=== PATIENT | male | born 1980 | race Two or more races ===

== ENCOUNTER 2024-01-26 08:23 | Inpatient (IN) | payer MEDICAID ==
[~2024-01-26] VITALS: Ht 177.8 cm; Wt 114.0 kg
[2024-01-26] MEDS: SODIUM CHLORIDE 0.9% 1,000 ML IV ONE (09:01)
[2024-01-26] MEDS: ONDANSETRON HCL 4 MG/2 ML VIAL IV ONE (09:04)
[2024-01-26 09:05] LABS: Hematocrit 42.8 % (41.0-53.0); Mean Corpuscular Hemoglobin 30.1 pg (28.0-32.0); Mean Corpuscular Volume 85.9 fL (80.0-100.0); Red Blood Cells 4.99 10^6/uL (4.5-5.90); Red Cell Distribution Width 13.2 % (11.8-14.3); White Blood Cell 14.7 10^3/uL (4.4-10.8)
[2024-01-26] MEDS: HYDROmorphone HCL 2 MG/ML VL/or syr IV ONE (09:05)
[2024-01-26] MEDS: PIPERACILLIN-TAZO 4.5GM 100 ML IV ONE (09:11)
[2024-01-26 09:16] LABS: Alanine Aminotransferase 24 U/L (7-40); Albumin 2.9 g/dL (3.2-4.8); Alkaline Phosphatase 102 U/L (46-116); Anion Gap 7 (5-15); Aspartate Aminotransferase 25 U/L (13-40); BUN/Creatinine Ratio 13.2 (10.0-20.0); Bilirubin, Total 0.8 mg/dL (0.2-1.0); Blood Urea Nitrogen 20 mg/dL (9-23); Calcium 8.4 mg/dL (8.5-10.1); Carbon Dioxide 22 mmol/L (20-30); Chloride 98 mmol/L (98-107); Glucose 116 mg/dL (74-106); Potassium 3.6 mmol/L (3.5-5.1); Sodium 127 mmol/L (136-145); Total Protein 5.9 g/dL (5.7-8.2)
[2024-01-26 09:24] LABS: INR 1.1 (0.9-1.15); Partial Thromboplastin Time 33.1 SEC (24.5-34.5); Prothrombin Time 11.6 sec (9.3-11.8)
[2024-01-26] MEDS: IOHEXOL 300 MG/ML 100ML BOTTLE IJ ONE (09:37)
[2024-01-26 09:41] LABS: Basophils % (manual) 0 (0.0-2.0); Blast Cells 0; Eosinophils % (manual) 0 (0-7); Metamyelocytes % 0; Myelocytes % 0; Promyelocytes % 0; Reactive Lymphocytes 0
[2024-01-26 09:42] VITALS: PULSE 104; RESP 29; O2SAT 99
[2024-01-26 09:42] LABS: Band Neutrophils % (manual) 12; Lymphocytes % (manual) 5 (10.0-50.0); Monocytes % (manual) 9 (0-12)
[2024-01-26 09:43] LABS: Platelet Estimate Adequate; RBC Morphology Normal
[2024-01-26] MEDS ORDERED: NITROGLYCERIN 0.4 MG SL TAB SL PRN (09:45)
[2024-01-26] MEDS ORDERED: DOCUSATE SOD 100 MG CAP PO PRN (09:45)
[2024-01-26] MEDS ORDERED: ACETAMINOPHEN 325 MG TAB PO PRN (09:45)
[2024-01-26] MEDS ORDERED: MORPHINE SULFATE INJ 2 MG/ml SYRG IV PRN (09:45)
[2024-01-26] MEDS: SODIUM CHLORIDE 0.9% 2,350 ML IV ONE (10:15)
[2024-01-26 10:29] LABS: Lactic Acid w/Reflex 2.1 mmol/L (0.4-2.0)
[2024-01-26] MEDS ORDERED: VANCOMYCIN PER PHARMACY 0 MG IV SCH ×2 (10:30→15:00)
[2024-01-26] MEDS: VANCOMYCIN 1GM/200ML 200 ML IV ONE (11:17)
[2024-01-26] MEDS: MAGNESIUM SULFATE 1GM/100ML 100 ML IV SCH (12:25)
[2024-01-26] MEDS: MORPHINE SULFATE INJ 2 MG/ml SYRG IV PRN (14:26)
[2024-01-26] MEDS: PIPERACILLIN-TAZOB 3.375GM 100 ML IV SCH (15:19)
[2024-01-26] MEDS: HYDROmorphone HCL 2 MG/ML VL/or syr IV PRN ×2 (15:27→22:35)
[2024-01-26] MEDS: HEPARIN DRIP/D5W 100UNITS/ML 250 ML IV SCH (16:01)
[2024-01-26] MEDS: HEPARIN SODIUM (PORCINE) 5000 UNITS/ML 1ML VIAL IV ONE (16:02)
[2024-01-26 16:06] LABS: Lipase 30 U/L (12-53)
[2024-01-26 16:07] LABS: Amylase 48 U/L (30-118)
[2024-01-26 16:34] LABS: INR 1.08 (0.9-1.15); Partial Thromboplastin Time 34.4 SEC (24.5-34.5); Prothrombin Time 11.4 sec (9.3-11.8)
[2024-01-26] MEDS: HYDROcodone-ACET 5/325MG TAB PO PRN (17:49)
[2024-01-26 17:58] LABS: Urine Bacteria None Seen /hpf (None Seen)
[2024-01-26 18:20] LABS: Urine Blood 2+ /uL (Negative); Urine Clarity Turbid (Clear); Urine Color Yellow (Yellow); Urine Mucus FEW (None Seen); Urine Protein, UAD 3+ (Negative); Urine Specific Gravity 1.039 (1.001-1.035); Urine Urobilinogen Normal (Negative); Urine WBC 5 /hpf (0 - 3)
[2024-01-26 18:32] LABS: Amphetamine Screen, Urine Pos (NEGATIVE); Barbiturate Scree,Urine Neg (NEGATIVE); Benzodiazephine Screen, Urine Neg (NEGATIVE); Cannabinoid Screen, Urine Pos (NEGATIVE); Cocaine Screen, Urine Neg (NEGATIVE); Opiate Scree,Urine Neg (NEGATIVE); Phencyclidine Screen, Urine Neg (NEGATIVE)
[2024-01-26 19:30] VITALS: PULSE 114; RESP 16; O2SAT 97
[2024-01-26] MEDS: VANCOMYCIN 1GM/200ML 200 ML IV SCH (21:35)
[2024-01-26 22:39] LABS: INR 1.24 (0.9-1.15); Prothrombin Time 12.9 sec (9.3-11.8)
[2024-01-26 22:51] LABS: Partial Thromboplastin Time 78.1 SEC (24.5-34.5)
[2024-01-26 23:12] VITALS: BP 128/79; PULSE 117; PULSE 95; RESP 20; O2SAT 95
[2024-01-26 23:15] VITALS: BP 128/79; PULSE 113; RESP 22; O2SAT 96
[2024-01-27] VITALS (18 sets, daily range): BP systolic 122–151; BP diastolic 80–117; PULSE 95–122; RESP 14–34; TEMP 97.6–98.7; O2SAT 92–97
[2024-01-27] MEDS: ONDANSETRON HCL 4 MG/2 ML VIAL IV PRN (03:42)
[2024-01-27 05:37] LABS: Hematocrit 44.1 % (41.0-53.0); Hemoglobin 15.1 g/dL (13.5-17.5); Mean Corpuscular Hemoglobin 29.8 pg (28.0-32.0); Mean Corpuscular Hgb Conc. 34.2 g/dL (32.0-36.0); Mean Corpuscular Volume 87.1 fL (80.0-100.0); Red Blood Cells 5.06 10^6/uL (4.5-5.90); Red Cell Distribution Width 13.8 % (11.8-14.3); White Blood Cell 19.3 10^3/uL (4.4-10.8)
[2024-01-27 05:44] LABS: Basophils % (manual) 0 (0.0-2.0); Blast Cells 0; Eosinophils % (manual) 0 (0-7); Metamyelocytes % 0; Myelocytes % 0; Promyelocytes % 0; Reactive Lymphocytes 0
[2024-01-27 05:58] LABS: Alanine Aminotransferase 31 U/L (7-40); Albumin 3.6 g/dL (3.2-4.8); Alkaline Phosphatase 107 U/L (46-116); Anion Gap 14 (5-15); Aspartate Aminotransferase 42 U/L (13-40); BUN/Creatinine Ratio 13.4 (10.0-20.0); Bilirubin, Total 0.6 mg/dL (0.2-1.0); Calcium 8.7 mg/dL (8.7-10.4); Carbon Dioxide 21 mmol/L (20-30); Chloride 97 mmol/L (98-107); Glucose 134 mg/dL (74-106); Potassium 3.9 mmol/L (3.5-5.1); Total Protein 6.6 g/dL (5.7-8.2)
[2024-01-27 06:00] LABS: Blood Urea Nitrogen 44 mg/dL (9-23); Sodium 132 mmol/L (136-145)
[2024-01-27] MEDS: LORazepam 2MG/ML-1ML VIAL IV PRN (06:03)
[2024-01-27 06:05] LABS: Band Neutrophils % (manual) 33; Lymphocytes % (manual) 3 (10.0-50.0); Monocytes % (manual) 10 (0-12); Platelet Estimate Adequate
[2024-01-27 06:16] LABS: INR 1.1 (0.9-1.15); Partial Thromboplastin Time 39.9 SEC (24.5-34.5); Prothrombin Time 11.6 sec (9.3-11.8)
[2024-01-27] MEDS: SODIUM CHLORIDE 0.9% 1,000 ML IV SCH (13:09)
[2024-01-27] MEDS: ENOXAPARIN SOD 120 MG/0.8 ML SYRINGE SC ONE (13:09)
[2024-01-27] MEDS: LORazepam 2MG/ML-1ML VIAL IV ONE (13:09)
[2024-01-27 13:55] LABS: Hematocrit 37.7 % (41.0-53.0); Hemoglobin 12.9 g/dL (13.5-17.5); Mean Corpuscular Hgb Conc. 34.3 g/dL (32.0-36.0); Mean Corpuscular Volume 87.4 fL (80.0-100.0); Red Blood Cells 4.31 10^6/uL (4.5-5.90); Red Cell Distribution Width 13.5 % (11.8-14.3); White Blood Cell 16.7 10^3/uL (4.4-10.8)
[2024-01-27 15:34] LABS: Basophils % (manual) 0 (0.0-2.0); Blast Cells 0; Metamyelocytes % 0; Myelocytes % 0; Promyelocytes % 0; Reactive Lymphocytes 0
[2024-01-27 15:48] LABS: Lactic Acid w/Reflex 2.2 mmol/L (0.4-2.0)
[2024-01-27 17:04] LABS: Band Neutrophils % (manual) 24; Eosinophils % (manual) 1 (0-7); Lymphocytes % (manual) 6 (10.0-50.0); Monocytes % (manual) 7 (0-12); Platelet Estimate Adequate
[2024-01-27] MEDS: NICOTINE 21MG/24 HR TOPICAL PATCH TD ONE (17:22)
[2024-01-27] MEDS ORDERED: HALOPERIDOL LACTATE 5 MG/ML INJ VIAL IM PRN (18:30)
[2024-01-27] MEDS: QUEtiapine FUMARATE 25 MG TAB PO SCH (21:57)
[2024-01-27] MEDS: ENOXAPARIN SOD 120 MG/0.8 ML SYRINGE SC SCH (21:58)
[2024-01-27] MEDS: FUROSEMIDE 40 MG/4 ML VIAL IV ONE (22:01)
[2024-01-27] MEDS: LINEZOLID 600MG/300ML 300 ML IV SCH (22:02)
[2024-01-28] VITALS (66 sets, daily range): BP systolic 87–207; BP diastolic 51–136; PULSE 88–142; RESP 14–40; TEMP 97.9–98.9; O2SAT 93–100
[2024-01-28] MEDS: ALBUTEROL SULF 2.5 MG/0.5ML(0.5%) NEB SOLN NEB PRN (03:39)
[2024-01-28 05:11] LABS: Hematocrit 34.8 % (41.0-53.0); Mean Corpuscular Hemoglobin 29.6 pg (28.0-32.0); Mean Corpuscular Hgb Conc. 34.3 g/dL (32.0-36.0); Mean Corpuscular Volume 86.2 fL (80.0-100.0); Red Blood Cells 4.04 10^6/uL (4.5-5.90); Red Cell Distribution Width 13.7 % (11.8-14.3); White Blood Cell 13.5 10^3/uL (4.4-10.8)
[2024-01-28 05:19] LABS: Basophils % (manual) 0 (0.0-2.0); Blast Cells 0; Chloride 100 mmol/L (98-107); Eosinophils % (manual) 0 (0-7); Metamyelocytes % 0; Myelocytes % 0; Potassium 3.8 mmol/L (3.5-5.1); Promyelocytes % 0; Reactive Lymphocytes 0; Sodium 131 mmol/L (136-145)
[2024-01-28 05:20] LABS: Anion Gap 7 (5-15); Carbon Dioxide 24 mmol/L (20-30)
[2024-01-28 05:25] LABS: BUN/Creatinine Ratio 18.2 (10.0-20.0); Blood Urea Nitrogen 52 mg/dL (9-23); Glucose 112 mg/dL (74-106); Magnesium 2.5 mg/dL (1.6-2.6)
[2024-01-28 05:35] LABS: Band Neutrophils % (manual) 22; Lymphocytes % (manual) 3 (10.0-50.0); Monocytes % (manual) 6 (0-12); Platelet Estimate Adequate
[2024-01-28 06:56] LABS: COVID19 ANTIGEN SOFIA FIA NEGATIVE (NEGATIVE)
[2024-01-28] MEDS: NICOTINE 21MG/24 HR TOPICAL PATCH TD SCH (09:34)
[2024-01-28] MEDS ORDERED: ALBUTEROL SULF 2.5 MG/0.5ML(0.5%) NEB SOLN NEB PRN (10:15)
[2024-01-28] MEDS ORDERED: VANCOMYCIN PER PHARMACY 0 MG IV SCH ×2 (10:30→18:15)
[2024-01-28 11:21] LABS: Phosphorus 4.7 mg/dL (2.4-5.1)
[2024-01-28 11:22] LABS: Base Excess -3.4 mmol/L (-2.0-2.0)
[2024-01-28] MEDS ORDERED: DAPTOmycin 0 MG in SODIUM CHL 0.9% 50 ML IV SCH (12:30)
[2024-01-28] MEDS ORDERED: DAPTOMYCIN IV SCH (13:00)
[2024-01-28] MEDS ORDERED: SODIUM CHL 0.9% IV SCH (13:00)
[2024-01-28] MEDS: ETOMIDATE (2MG/ML) 20ML VIAL IV ONE ×2 (14:45→15:07)
[2024-01-28] MEDS: ROCURONIUM 10MG/ML 10ML VIAL IV ONE ×3 (15:07→15:11)
[2024-01-28] MEDS: MIDAZOLAM DRIP 50 mg/50mL 50 ML IV SCH (15:15)
[2024-01-28] MEDS: NOREPINEPHRINE 8 MG/250ML KIT 250 ML IV SCH (15:15)
[2024-01-28] MEDS: fentaNYL Drip 2500mCg/250mlNS 250 ML IV SCH (15:15)
[2024-01-28] MEDS: fentaNYL Drip 2500mCg/250mlNS 250 ML IV ONE (15:17)
[2024-01-28] MEDS: MIDAZOLAM DRIP 50 mg/50mL 50 ML IV ONE (15:17)
[2024-01-28] MEDS: MIDAZOLAM DRIP 50 mg/50mL 0 ML IV ONE (15:17)
[2024-01-28] MEDS: fentaNYL Drip 2500mCg/250mlNS 0 ML IV ONE (15:17)
[2024-01-28] MEDS: PROPOFOL 100 ML IV SCH (15:20)
[2024-01-28] MEDS: PROPOFOL 100 ML IV ONE (15:20)
[2024-01-28 16:41] LABS: Base Excess -4.9 mmol/L (-2.0-2.0)
[2024-01-28 19:47] LABS: Base Excess -5.8 mmol/L (-2.0-2.0)
[2024-01-28] MEDS: VANCOMYCIN 1GM/200ML 200 ML IV ONE (20:07)
[2024-01-28 20:53] LABS: Urine Amorphous Crystal FEW /hpf (None Seen); Urine Bacteria FEW /hpf (None Seen); Urine Blood 3+ /uL (Negative); Urine Clarity Ex.Turbid (Clear); Urine Color Light-Orange (Yellow); Urine Mucus FEW (None Seen); Urine Protein, UAD 3+ (Negative); Urine Specific Gravity 1.021 (1.001-1.035); Urine Urobilinogen Normal (Negative); Urine WBC 11 /hpf (0 - 3); Urine WBC Clumps PRESENT /hpf (None Seen)
[2024-01-28 21:02] LABS: Base Excess -3.5 mmol/L (-2.0-2.0)
[2024-01-28] MEDS: cefTRIAXone 2GM/50ML D5W 50 ML IV SCH (21:34)
[2024-01-29] VITALS (122 sets, daily range): BP systolic 85–109; BP diastolic 35–61; PULSE 78–94; RESP 15–22; TEMP 97.3–98.4; O2SAT 87–99
[2024-01-29 04:27] LABS: Basophils # (auto) 0 10 ^3/uL (0-0.2); Basophils % (auto) 0.2 % (0.0-2.0); Eosinophils # (auto) 0.1 10 ^3/uL (0-0.8); Eosinophils % (auto) 0.8 % (0.0-7.0); Hematocrit 31.2 % (41.0-53.0); Hemoglobin 10.7 g/dL (13.5-17.5); Lymphocytes # (auto) 0.5 10 ^3/uL (0.4-5.4); Lymphocytes % (auto) 4.5 % (10.0-50.0); Mean Corpuscular Hemoglobin 30.1 pg (28.0-32.0); Mean Corpuscular Hgb Conc. 34.3 g/dL (32.0-36.0); Mean Corpuscular Volume 87.8 fL (80.0-100.0); Monocytes # (auto) 0.8 10 ^3/uL (0-1.3); Monocytes % (auto) 6.9 % (0.0-12.0); Neutrophils # (auto) 9.9 10 ^3/uL (1.6-8.6); Neutrophils % (auto) 87.6 % (37.0-80.0); Red Blood Cells 3.55 10^6/uL (4.5-5.90); White Blood Cell 11.3 10^3/uL (4.4-10.8)
[2024-01-29 04:43] LABS: Alanine Aminotransferase 23 U/L (7-40); Albumin 2.7 g/dL (3.2-4.8); Alkaline Phosphatase 95 U/L (46-116); Anion Gap 7 (5-15); Aspartate Aminotransferase 19 U/L (13-40); BUN/Creatinine Ratio 19.5 (10.0-20.0); Bilirubin, Total 0.2 mg/dL (0.2-1.0); Blood Urea Nitrogen 60 mg/dL (9-23); Carbon Dioxide 26 mmol/L (20-30); Chloride 102 mmol/L (98-107); Glucose 97 mg/dL (74-106); Magnesium 3.2 mg/dL (1.6-2.6); Phosphorus 5.6 mg/dL (2.4-5.1); Potassium 3.8 mmol/L (3.5-5.1); Sodium 135 mmol/L (136-145); Total Protein 5.1 g/dL (5.7-8.2)
[2024-01-29] MEDS: VANCOMYCIN 1GM/200ML 200 ML IV ONE (05:21)
[2024-01-29 07:07] LABS: Base Excess -5.3 mmol/L (-2.0-2.0)
[2024-01-29] MEDS ORDERED: DAPTOmycin 0 MG in SODIUM CHL 0.9% 50 ML IV SCH (10:00)
[2024-01-29 10:35] LABS: Hematocrit 32.9 % (41.0-53.0); Hemoglobin 11.3 g/dL (13.5-17.5); Mean Corpuscular Hemoglobin 30.3 pg (28.0-32.0); Mean Corpuscular Hgb Conc. 34.3 g/dL (32.0-36.0); Mean Corpuscular Volume 88.2 fL (80.0-100.0); Red Blood Cells 3.73 10^6/uL (4.5-5.90); Red Cell Distribution Width 14.3 % (11.8-14.3); White Blood Cell 12.8 10^3/uL (4.4-10.8)
[2024-01-29] MEDS ORDERED: CEFEPIME 1GM/ 50ML 50 ML IV SCH (10:41)
[2024-01-29 10:43] LABS: Basophils % (manual) 0 (0.0-2.0); Blast Cells 0; Myelocytes % 0; Promyelocytes % 0; Reactive Lymphocytes 0
[2024-01-29 10:46] LABS: Alanine Aminotransferase 21 U/L (7-40); Albumin 2.7 g/dL (3.2-4.8); Alkaline Phosphatase 95 U/L (46-116); Anion Gap 7 (5-15); Aspartate Aminotransferase 17 U/L (13-40); BUN/Creatinine Ratio 18.8 (10.0-20.0); Bilirubin, Total 0.2 mg/dL (0.2-1.0); Blood Urea Nitrogen 65 mg/dL (9-23); Carbon Dioxide 25 mmol/L (20-30); Chloride 102 mmol/L (98-107); Glucose 95 mg/dL (74-106); Potassium 3.8 mmol/L (3.5-5.1); Sodium 134 mmol/L (136-145); Total Protein 5.2 g/dL (5.7-8.2)
[2024-01-29 10:48] LABS: Band Neutrophils % (manual) 13; Eosinophils % (manual) 1 (0-7); Lymphocytes % (manual) 5 (10.0-50.0); Metamyelocytes % 1; Monocytes % (manual) 7 (0-12)
[2024-01-29 10:50] LABS: Platelet Estimate Adequate; RBC Morphology Normal
[2024-01-29] MEDS: Nepro With Carb Steady 1 Liter Bottle GT SCH (14:52)
[2024-01-29] MEDS: SODIUM CHLORIDE 0.9% 1,000 ML IV SCH (18:30)
[2024-01-30] VITALS (109 sets, daily range): BP systolic 89–126; BP diastolic 44–78; PULSE 79–97; RESP 14–22; TEMP 98.1–99.7; O2SAT 92–100
[2024-01-30 01:05] LABS: Coccidioides CF Antibody <1:2 (<1:2)
[2024-01-30 04:02] LABS: Anion Gap 8 (5-15); Calcium 8.4 mg/dL (8.7-10.4); Carbon Dioxide 25 mmol/L (20-30); Chloride 104 mmol/L (98-107); Potassium 3.9 mmol/L (3.5-5.1); Sodium 137 mmol/L (136-145)
[2024-01-30 04:08] LABS: BUN/Creatinine Ratio 18.8 (10.0-20.0); Glucose 93 mg/dL (74-106)
[2024-01-30 04:22] LABS: Blood Urea Nitrogen 76 mg/dL (9-23)
[2024-01-30 06:59] LABS: Base Excess -4.4 mmol/L (-2.0-2.0)
[2024-01-30] MEDS: IPRATROPIUM BROM 0.5 MG/2.5ML INH SOL NEB SCH (11:21)
[2024-01-30] MEDS: ALBUTEROL SULF 2.5 MG/0.5ML(0.5%) NEB SOLN NEB SCH (11:21)
[2024-01-30 12:06] LABS: Aspergillus flavus Negative (Neg:<1:1); Aspergillus fumigatus Negative (Neg:<1:1); Aspergillus niger Negative (Neg:<1:1)
[2024-01-30] MEDS: CEFTAROLINE 300 MG in SODIUM CHL 0.9% 250 ML IV SCH (12:30)
[2024-01-30] MEDS: FUROSEMIDE INJECTION 100 MG in SODIUM CHL 0.9% 100 ML IV SCH (13:13)
[2024-01-30] MEDS: DAPTOmycin 1,000 MG in SODIUM CHL 0.9% 50 ML IV SCH (19:30)
[2024-01-31] VITALS (121 sets, daily range): BP systolic 93–117; BP diastolic 38–62; PULSE 84–102; RESP 11–22; TEMP 98.1–99; O2SAT 94–100
[2024-01-31 04:02] LABS: Hematocrit 31.5 % (41.0-53.0); Hemoglobin 10.4 g/dL (13.5-17.5); Mean Corpuscular Hemoglobin 29.5 pg (28.0-32.0); Mean Corpuscular Volume 89.3 fL (80.0-100.0); Red Blood Cells 3.53 10^6/uL (4.5-5.90); Red Cell Distribution Width 14.8 % (11.8-14.3); White Blood Cell 12.6 10^3/uL (4.4-10.8)
[2024-01-31 04:07] LABS: Anion Gap 8 (5-15); Carbon Dioxide 24 mmol/L (20-30); Chloride 108 mmol/L (98-107); Potassium 3.9 mmol/L (3.5-5.1); Sodium 140 mmol/L (136-145)
[2024-01-31 04:08] LABS: Calcium 8.2 mg/dL (8.7-10.4)
[2024-01-31 04:12] LABS: Basophils % (manual) 0 (0.0-2.0); Blast Cells 0; Promyelocytes % 0; Reactive Lymphocytes 0
[2024-01-31 04:13] LABS: BUN/Creatinine Ratio 19.2 (10.0-20.0); Glucose 100 mg/dL (74-106)
[2024-01-31 04:15] LABS: Phosphorus 7.3 mg/dL (2.4-5.1)
[2024-01-31 04:27] LABS: Blood Urea Nitrogen 83 mg/dL (9-23)
[2024-01-31 04:58] LABS: Band Neutrophils % (manual) 9; Eosinophils % (manual) 2 (0-7); Lymphocytes % (manual) 8 (10.0-50.0); Metamyelocytes % 2; Monocytes % (manual) 5 (0-12); Myelocytes % 5; Platelet Estimate Adequate
[2024-01-31 04:59] LABS: Large Platelets FEW
[2024-01-31 07:52] LABS: Base Excess -4.9 mmol/L (-2.0-2.0)
[2024-01-31] MEDS: ENOXAPARIN SOD 120 MG/0.8 ML SYRINGE SC SCH (09:35)
[2024-01-31] MEDS ORDERED: LIDOCAINE 2% JELLY 11ml (GLYDO) ONE (10:54)
[2024-01-31] MEDS ORDERED: LIDOCAINE 2%HCL (LOCAL ANESTH.) INJ 20ML MDV ONE (10:54)
[2024-01-31] MEDS ORDERED: SODIUM CHLORIDE LOCK 0 ML ONE (10:54)
[2024-01-31] MEDS ORDERED: MIDAZOLAM HCL 5 MG/ML-1ML VIAL ONE (10:55)
[2024-01-31] MEDS ORDERED: EPINEPHrine HCL 1 MG/1 ML AMP ONE (10:55)
[2024-01-31] MEDS ORDERED: fentaNYL CITRATE 100 MCG/2 ML VL ONE (10:55)
[2024-01-31] MEDS ORDERED: GLYCOPYRROLATE 0.2 MG/ML 1ML VIAL ONE (10:55)
[2024-01-31] MEDS ORDERED: NALOXONE HCL 0.4 MG/ML VIAL ONE (10:56)
[2024-01-31] MEDS ORDERED: FLUMAZENIL 0.1 MG/ML INJ 10ML MDV IV ONE (10:56)
[2024-01-31] MEDS: ACETYLCYSTEINE 20%(200MG/ML) SOL 4ML NEB SCH (13:21)
[2024-02-01] VITALS (113 sets, daily range): BP systolic 97–155; BP diastolic 46–91; PULSE 78–101; RESP 16–23; TEMP 97.9–99; O2SAT 88–99
[2024-02-01 04:03] LABS: Hematocrit 30.8 % (41.0-53.0); Hemoglobin 10.1 g/dL (13.5-17.5); Mean Corpuscular Hemoglobin 29.7 pg (28.0-32.0); Mean Corpuscular Hgb Conc. 32.9 g/dL (32.0-36.0); Mean Corpuscular Volume 90.4 fL (80.0-100.0); Red Blood Cells 3.41 10^6/uL (4.5-5.90); Red Cell Distribution Width 15.1 % (11.8-14.3); White Blood Cell 13.4 10^3/uL (4.4-10.8)
[2024-02-01 04:18] LABS: Anion Gap 9 (5-15); Calcium 8.1 mg/dL (8.7-10.4); Carbon Dioxide 22 mmol/L (20-30); Chloride 112 mmol/L (98-107); Potassium 4.5 mmol/L (3.5-5.1); Sodium 143 mmol/L (136-145)
[2024-02-01 04:19] LABS: Basophils % (manual) 0 (0.0-2.0); Blast Cells 0; Promyelocytes % 0; Reactive Lymphocytes 0
[2024-02-01 04:24] LABS: BUN/Creatinine Ratio 19.6 (10.0-20.0); Glucose 101 mg/dL (74-106)
[2024-02-01 04:36] LABS: Blood Urea Nitrogen 88 mg/dL (9-23)
[2024-02-01 04:52] LABS: Band Neutrophils % (manual) 11; Eosinophils % (manual) 4 (0-7); Lymphocytes % (manual) 5 (10.0-50.0); Metamyelocytes % 7; Monocytes % (manual) 10 (0-12); Myelocytes % 3
[2024-02-01 04:53] LABS: Large Platelets FEW; Platelet Estimate Adequate
[2024-02-01 07:07] LABS: Base Excess -4.7 mmol/L (-2.0-2.0)
[2024-02-01] MEDS: METOCLOPRAMIDE HCL 5MG/ml INJ 2ml VIAL IV SCH (14:45)
[2024-02-02] VITALS (108 sets, daily range): BP systolic 93–122; BP diastolic 44–63; PULSE 81–102; RESP 12–26; TEMP 98.2–99.7; O2SAT 94–100
[2024-02-02 04:24] LABS: Anion Gap 8 (5-15); Carbon Dioxide 19 mmol/L (20-30); Chloride 119 mmol/L (98-107); Potassium 4.9 mmol/L (3.5-5.1); Sodium 146 mmol/L (136-145)
[2024-02-02 04:25] LABS: Hematocrit 32.5 % (41.0-53.0); Hemoglobin 10.7 g/dL (13.5-17.5); Mean Corpuscular Hemoglobin 29.7 pg (28.0-32.0); Red Blood Cells 3.61 10^6/uL (4.5-5.90); White Blood Cell 14.1 10^3/uL (4.4-10.8)
[2024-02-02 04:29] LABS: BUN/Creatinine Ratio 22.5 (10.0-20.0); Glucose 102 mg/dL (74-106)
[2024-02-02 04:37] LABS: Basophils % (manual) 0 (0.0-2.0); Blast Cells 0; Metamyelocytes % 0; Promyelocytes % 0
[2024-02-02 04:38] LABS: Blood Urea Nitrogen 87 mg/dL (9-23)
[2024-02-02 05:18] LABS: Band Neutrophils % (manual) 7; Eosinophils % (manual) 4 (0-7); Lymphocytes % (manual) 7 (10.0-50.0); Monocytes % (manual) 3 (0-12); Myelocytes % 6; Platelet Estimate Adequate; Reactive Lymphocytes 1
[2024-02-02 07:39] LABS: Base Excess -5.6 mmol/L (-2.0-2.0)
[2024-02-02] MEDS ORDERED: LIDOCAINE HCL 2% TOP JELLY 5ML TOP ONE (09:43)
[2024-02-02 10:54] LABS: Chloride 117 mmol/L (98-107); Potassium 4.9 mmol/L (3.5-5.1); Sodium 147 mmol/L (136-145)
[2024-02-02 10:55] LABS: Anion Gap 8 (5-15); Carbon Dioxide 22 mmol/L (20-30)
[2024-02-02 10:57] LABS: Hematocrit 32.7 % (41.0-53.0); Hemoglobin 10.8 g/dL (13.5-17.5); Mean Corpuscular Hemoglobin 29.9 pg (28.0-32.0); Mean Corpuscular Hgb Conc. 33.1 g/dL (32.0-36.0); Mean Corpuscular Volume 90.1 fL (80.0-100.0); Red Blood Cells 3.63 10^6/uL (4.5-5.90); Red Cell Distribution Width 15.3 % (11.8-14.3); White Blood Cell 17.6 10^3/uL (4.4-10.8)
[2024-02-02 11:00] LABS: BUN/Creatinine Ratio 23.5 (10.0-20.0); Basophils % (manual) 0 (0.0-2.0); Blast Cells 0; Eosinophils % (manual) 0 (0-7); Glucose 104 mg/dL (74-106); Metamyelocytes % 0; Myelocytes % 0; Promyelocytes % 0; Reactive Lymphocytes 0
[2024-02-02 11:05] LABS: Blood Urea Nitrogen 85 mg/dL (9-23)
[2024-02-02 11:07] LABS: INR 0.93 (0.9-1.15); Partial Thromboplastin Time 27.6 SEC (24.5-34.5); Prothrombin Time 9.9 sec (9.3-11.8)
[2024-02-02 11:19] LABS: Band Neutrophils % (manual) 13; Lymphocytes % (manual) 8 (10.0-50.0); Monocytes % (manual) 2 (0-12); Platelet Estimate Adequate
[2024-02-02] MEDS ORDERED: GLYCOPYRROLATE 0.2 MG/ML 1ML VIAL ONE (11:24)
[2024-02-02] MEDS: FUROSEMIDE 100 MG/10ML VIAL IV ONE (11:25)
[2024-02-02] MEDS: FUROSEMIDE 100 MG/10ML VIAL IV SCH (17:48)
[2024-02-03] VITALS (116 sets, daily range): BP systolic 86–178; BP diastolic 38–100; PULSE 76–110; RESP 14–32; TEMP 98.4–99.7; O2SAT 89–100
[2024-02-03 04:01] LABS: Hematocrit 30.1 % (41.0-53.0); Hemoglobin 9.7 g/dL (13.5-17.5); Mean Corpuscular Hemoglobin 29.3 pg (28.0-32.0); Mean Corpuscular Hgb Conc. 32.2 g/dL (32.0-36.0); Mean Corpuscular Volume 91.1 fL (80.0-100.0); Red Blood Cells 3.31 10^6/uL (4.5-5.90); Red Cell Distribution Width 15.6 % (11.8-14.3); White Blood Cell 15.4 10^3/uL (4.4-10.8)
[2024-02-03 04:09] LABS: Basophils % (manual) 0 (0.0-2.0); Blast Cells 0; Myelocytes % 0; Promyelocytes % 0; Reactive Lymphocytes 0
[2024-02-03 04:13] LABS: Anion Gap 8 (5-15); Carbon Dioxide 21 mmol/L (20-30); Chloride 120 mmol/L (98-107); Potassium 5.1 mmol/L (3.5-5.1); Sodium 149 mmol/L (136-145)
[2024-02-03 04:14] LABS: Calcium 7.8 mg/dL (8.7-10.4)
[2024-02-03 04:19] LABS: BUN/Creatinine Ratio 22.7 (10.0-20.0); Glucose 89 mg/dL (74-106)
[2024-02-03 04:46] LABS: Blood Urea Nitrogen 85 mg/dL (9-23)
[2024-02-03 08:26] LABS: Base Excess -6.4 mmol/L (-2.0-2.0)
[2024-02-03 09:40] LABS: Band Neutrophils % (manual) 11; Eosinophils % (manual) 1 (0-7); Lymphocytes % (manual) 8 (10.0-50.0); Metamyelocytes % 6; Monocytes % (manual) 3 (0-12)
[2024-02-03 09:41] LABS: Platelet Estimate Adequate
[2024-02-03] MEDS: PANTOPRAZOLE 40 MG/10 ML VIAL INJ IV SCH (10:27)
[2024-02-03] MEDS: diphenhdrAMINE HCL 50 MG/1 ML VL IV ONE (10:45)
[2024-02-03] MEDS: methylPREDNISolone SOD SUCC 125 MG/2 ML VL IV ONE (10:45)
[2024-02-03] MEDS ORDERED: LIDOCAINE 2%HCL (LOCAL ANESTH.) INJ 20ML MDV ONE (11:46)
[2024-02-03] MEDS ORDERED: LIDOCAINE 2% JELLY 11ml (GLYDO) ONE (11:46)
[2024-02-03] MEDS ORDERED: EPINEPHrine HCL 1 MG/1 ML AMP ONE (11:47)
[2024-02-03] MEDS ORDERED: MIDAZOLAM HCL 5 MG/ML-1ML VIAL ONE (11:47)
[2024-02-03] MEDS ORDERED: GLYCOPYRROLATE 0.2 MG/ML 1ML VIAL ONE (11:47)
[2024-02-03] MEDS ORDERED: fentaNYL CITRATE 100 MCG/2 ML VL ONE (11:48)
[2024-02-03] MEDS: LACTULOSE 20Gm/30ML SOLN GT SCH (13:42)
[2024-02-03] MEDS: LINEZOLID 600MG/300ML 300 ML IV SCH (13:42)
[2024-02-03] MEDS: FAMOTIDINE INJECTION 40 MG in SODIUM CHL 0.9% 100 ML IV ONE (15:13)
[2024-02-03] MEDS: diphenhdrAMINE HCL 50 MG/1 ML VL ONE (15:26)
[2024-02-03] MEDS: FREE WATER GT SCH (18:02)
[2024-02-03 18:41] LABS: % Iron Saturation 11.3 % (20-55)
[2024-02-04] VITALS (119 sets, daily range): BP systolic 75–187; BP diastolic 30–110; PULSE 67–119; RESP 13–30; TEMP 98.2–99.9; O2SAT 93–100
[2024-02-04 04:10] LABS: Basophils # (auto) 0 10 ^3/uL (0-0.2); Basophils % (auto) 0.1 % (0.0-2.0); Eosinophils # (auto) 0 10 ^3/uL (0-0.8); Eosinophils % (auto) 0.2 % (0.0-7.0); Lymphocytes # (auto) 0.5 10 ^3/uL (0.4-5.4); Lymphocytes % (auto) 2.8 % (10.0-50.0); Mean Corpuscular Hemoglobin 30.2 pg (28.0-32.0); Mean Corpuscular Hgb Conc. 33.4 g/dL (32.0-36.0); Mean Corpuscular Volume 90.4 fL (80.0-100.0); Monocytes # (auto) 0.3 10 ^3/uL (0-1.3); Neutrophils # (auto) 15.7 10 ^3/uL (1.6-8.6); Neutrophils % (auto) 94.9 % (37.0-80.0); Red Blood Cells 3.32 10^6/uL (4.5-5.90); White Blood Cell 16.6 10^3/uL (4.4-10.8)
[2024-02-04 04:28] LABS: Chloride 118 mmol/L (98-107); Potassium 5.1 mmol/L (3.5-5.1); Sodium 149 mmol/L (136-145)
[2024-02-04 04:29] LABS: Anion Gap 5 (5-15); Calcium 7.8 mg/dL (8.5-10.1); Carbon Dioxide 26 mmol/L (20-30)
[2024-02-04 04:34] LABS: BUN/Creatinine Ratio 27.3 (10.0-20.0); Glucose 122 mg/dL (74-106)
[2024-02-04 04:57] LABS: Blood Urea Nitrogen 98 mg/dL (9-23)
[2024-02-04 07:04] LABS: Base Excess -4.7 mmol/L (-2.0-2.0)
[2024-02-04] MEDS: FAMOTIDINE INJECTION 40 MG in SODIUM CHL 0.9% 100 ML IV ONE (11:06)
[2024-02-04] MEDS: diphenhdrAMINE HCL 50 MG/1 ML VL IV SCH (11:07)
[2024-02-04] MEDS: FREE WATER GT SCH (11:20)
[2024-02-04] MEDS: SODIUM FERR GLUC 62.5MG/5ML 110 ML IV SCH (12:48)
[2024-02-04] MEDS: HYDROCORTISONE SOD SUCC 100 MG/2ML INJ VIAL IV SCH (22:48)
[2024-02-05] VITALS (123 sets, daily range): BP systolic 90–177; BP diastolic 46–87; PULSE 63–133; RESP 11–30; TEMP 98.1–99.9; O2SAT 86–100
[2024-02-05 04:29] LABS: Chloride 117 mmol/L (98-107); Potassium 5.1 mmol/L (3.5-5.1); Sodium 149 mmol/L (136-145)
[2024-02-05 04:30] LABS: Anion Gap 11 (5-15); Calcium 7.9 mg/dL (8.7-10.4); Carbon Dioxide 21 mmol/L (20-30)
[2024-02-05 04:35] LABS: BUN/Creatinine Ratio 25.9 (10.0-20.0); Glucose 122 mg/dL (74-106)
[2024-02-05 04:42] LABS: Basophils # (auto) 0 10 ^3/uL (0-0.2); Basophils % (auto) 0.3 % (0.0-2.0); Eosinophils # (auto) 0.3 10 ^3/uL (0-0.8); Eosinophils % (auto) 2.3 % (0.0-7.0); Hematocrit 31.1 % (41.0-53.0); Hemoglobin 10.1 g/dL (13.5-17.5); Lymphocytes # (auto) 0.5 10 ^3/uL (0.4-5.4); Mean Corpuscular Hemoglobin 29.5 pg (28.0-32.0); Mean Corpuscular Hgb Conc. 32.5 g/dL (32.0-36.0); Mean Corpuscular Volume 90.8 fL (80.0-100.0); Monocytes # (auto) 0.5 10 ^3/uL (0-1.3); Monocytes % (auto) 2.9 % (0.0-12.0); Neutrophils # (auto) 14.1 10 ^3/uL (1.6-8.6); Neutrophils % (auto) 91.5 % (37.0-80.0); Nucleated Red Blood Cells % 0.1 %; Red Blood Cells 3.42 10^6/uL (4.5-5.90); Red Cell Distribution Width 14.6 % (11.8-14.3); White Blood Cell 15.5 10^3/uL (4.4-10.8)
[2024-02-05 05:51] LABS: Blood Urea Nitrogen 91 mg/dL (9-23)
[2024-02-05] MEDS: D5W/SOD CHL 0.45% 1,000 ML IV SCH (10:16)
[2024-02-05 12:50] LABS: Rapid Influenza A Negative (Negative); Rapid Influenza B Negative (Negative)
[2024-02-06] VITALS (115 sets, daily range): BP systolic 85–208; BP diastolic 40–93; PULSE 77–131; RESP 12–28; TEMP 98.1–99.3; O2SAT 89–100
[2024-02-06 03:55] LABS: Basophils # (auto) 0.1 10 ^3/uL (0-0.2); Basophils % (auto) 0.5 % (0.0-2.0); Eosinophils # (auto) 0.3 10 ^3/uL (0-0.8); Eosinophils % (auto) 1.8 % (0.0-7.0); Hematocrit 28.8 % (41.0-53.0); Hemoglobin 9.6 g/dL (13.5-17.5); Lymphocytes # (auto) 0.4 10 ^3/uL (0.4-5.4); Lymphocytes % (auto) 2.8 % (10.0-50.0); Mean Corpuscular Hemoglobin 30.6 pg (28.0-32.0); Mean Corpuscular Hgb Conc. 33.5 g/dL (32.0-36.0); Mean Corpuscular Volume 91.5 fL (80.0-100.0); Monocytes # (auto) 0.5 10 ^3/uL (0-1.3); Monocytes % (auto) 3.4 % (0.0-12.0); Neutrophils # (auto) 14.7 10 ^3/uL (1.6-8.6); Neutrophils % (auto) 91.5 % (37.0-80.0); Red Blood Cells 3.14 10^6/uL (4.5-5.90); Red Cell Distribution Width 14.5 % (11.8-14.3)
[2024-02-06 04:01] LABS: Alanine Aminotransferase 30 U/L (7-40); Albumin 2.5 g/dL (3.2-4.8); Alkaline Phosphatase 115 U/L (46-116); Anion Gap 7 (5-15); Aspartate Aminotransferase 17 U/L (13-40); BUN/Creatinine Ratio 26.2 (10.0-20.0); Bilirubin, Total 0.2 mg/dL (0.2-1.0); Carbon Dioxide 24 mmol/L (20-30); Chloride 115 mmol/L (98-107); Glucose 117 mg/dL (74-106); Potassium 4.7 mmol/L (3.5-5.1); Sodium 146 mmol/L (136-145); Total Protein 5.8 g/dL (5.7-8.2)
[2024-02-06 04:22] LABS: Blood Urea Nitrogen 77 mg/dL (9-23)
[2024-02-06 07:17] LABS: Base Excess -3.3 mmol/L (-2.0-2.0)
[2024-02-06] MEDS: FREE WATER GT SCH (18:07)
[2024-02-06] MEDS: ROCURONIUM 10MG/ML 10ML VIAL IV ONE (21:13)
[2024-02-07] VITALS (117 sets, daily range): BP systolic 42–177; BP diastolic 38–131; PULSE 69–114; RESP 18–26; TEMP 97.5–99.1; O2SAT 92–100
[2024-02-07 04:23] LABS: Basophils # (auto) 0 10 ^3/uL (0-0.2); Basophils % (auto) 0.2 % (0.0-2.0); Eosinophils # (auto) 0.3 10 ^3/uL (0-0.8); Hematocrit 27.4 % (41.0-53.0); Hemoglobin 9.2 g/dL (13.5-17.5); Lymphocytes # (auto) 0.6 10 ^3/uL (0.4-5.4); Lymphocytes % (auto) 4.2 % (10.0-50.0); Mean Corpuscular Hemoglobin 30.4 pg (28.0-32.0); Mean Corpuscular Hgb Conc. 33.6 g/dL (32.0-36.0); Mean Corpuscular Volume 90.6 fL (80.0-100.0); Monocytes # (auto) 0.5 10 ^3/uL (0-1.3); Monocytes % (auto) 3.4 % (0.0-12.0); Neutrophils # (auto) 12.2 10 ^3/uL (1.6-8.6); Neutrophils % (auto) 90.2 % (37.0-80.0); Red Blood Cells 3.03 10^6/uL (4.5-5.90); Red Cell Distribution Width 14.2 % (11.8-14.3); White Blood Cell 13.5 10^3/uL (4.4-10.8)
[2024-02-07 04:50] LABS: Alanine Aminotransferase 26 U/L (7-40); Albumin 2.5 g/dL (3.2-4.8); Alkaline Phosphatase 105 U/L (46-116); Anion Gap 5 (5-15); BUN/Creatinine Ratio 25.5 (10.0-20.0); Bilirubin, Total 0.2 mg/dL (0.2-1.0); Carbon Dioxide 24 mmol/L (20-30); Chloride 116 mmol/L (98-107); Glucose 103 mg/dL (74-106); Potassium 4.5 mmol/L (3.5-5.1); Sodium 145 mmol/L (136-145)
[2024-02-07 04:51] LABS: Total Protein 5.7 g/dL (5.7-8.2)
[2024-02-07 04:52] LABS: Blood Urea Nitrogen 61 mg/dL (9-23)
[2024-02-07 04:55] LABS: Aspartate Aminotransferase 14 U/L (13-40)
[2024-02-07 07:45] LABS: Base Excess -2.3 mmol/L (-2.0-2.0)
[2024-02-07] MEDS: FUROSEMIDE 40 MG/4 ML VIAL IV SCH (09:33)
[2024-02-07] MEDS: FREE WATER GT SCH (11:00)
[2024-02-07] MEDS ORDERED: diphenhdrAMINE HCL 50 MG/1 ML VL IV PRN (12:00)
[2024-02-07 12:12] LABS: INR 0.96 (0.9-1.15); Prothrombin Time 10.2 sec (9.3-11.8)
[2024-02-07] MEDS: FAMOTIDINE (10MG/ML) 2ML VL IV SCH (13:07)
[2024-02-07] MEDS: METOCLOPRAMIDE 10 mg/10ml ORAL soln GT SCH (14:00)
[2024-02-07] MEDS: SODIUM CHLORIDE 0.9% 250 ML IV ONE (18:01)
[2024-02-08] VITALS (105 sets, daily range): BP systolic 94–197; BP diastolic 46–105; PULSE 65–136; RESP 14–36; TEMP 98.2–99.7; O2SAT 90–100
[2024-02-08 04:22] LABS: Basophils # (auto) 0 10 ^3/uL (0-0.2); Basophils % (auto) 0.3 % (0.0-2.0); Eosinophils # (auto) 0.4 10 ^3/uL (0-0.8); Eosinophils % (auto) 3.6 % (0.0-7.0); Hematocrit 25.2 % (41.0-53.0); Hemoglobin 8.4 g/dL (13.5-17.5); Lymphocytes # (auto) 0.8 10 ^3/uL (0.4-5.4); Mean Corpuscular Hemoglobin 30.5 pg (28.0-32.0); Mean Corpuscular Hgb Conc. 33.5 g/dL (32.0-36.0); Mean Corpuscular Volume 91.1 fL (80.0-100.0); Monocytes # (auto) 0.3 10 ^3/uL (0-1.3); Monocytes % (auto) 3.4 % (0.0-12.0); Neutrophils # (auto) 8.2 10 ^3/uL (1.6-8.6); Neutrophils % (auto) 84.7 % (37.0-80.0); Nucleated Red Blood Cells % 0.2 %; Red Blood Cells 2.77 10^6/uL (4.5-5.90); Red Cell Distribution Width 14.1 % (11.8-14.3); White Blood Cell 9.7 10^3/uL (4.4-10.8)
[2024-02-08 04:29] LABS: Anion Gap 6 (5-15); Carbon Dioxide 25 mmol/L (20-30); Chloride 113 mmol/L (98-107); Potassium 4.5 mmol/L (3.5-5.1); Sodium 144 mmol/L (136-145)
[2024-02-08 04:31] LABS: Calcium 8.2 mg/dL (8.7-10.4)
[2024-02-08 04:35] LABS: BUN/Creatinine Ratio 24.2 (10.0-20.0); Blood Urea Nitrogen 59 mg/dL (9-23); Glucose 113 mg/dL (74-106)
[2024-02-08 07:50] LABS: Base Excess -1.5 mmol/L (-2.0-2.0)
[2024-02-08] MEDS: FAMOTIDINE (10MG/ML) 2ML VL IV SCH (09:41)
[2024-02-08 10:12] LABS: Base Excess -2.3 mmol/L (-2.0-2.0)
[2024-02-08] MEDS: HALOPERIDOL LACTATE 5 MG/ML INJ VIAL ONE (12:17)
[2024-02-08] MEDS: HALOPERIDOL LACTATE 5 MG/ML INJ VIAL IM ONE (12:18)
[2024-02-09] VITALS (36 sets, daily range): BP systolic 126–185; BP diastolic 69–94; PULSE 72–116; RESP 16–26; TEMP 98.1–99.5; O2SAT 92–99
[2024-02-09] MEDS: LABETALOL HCL 5 MG/ML 4ML SYRINGE IV PRN (00:25)
[2024-02-09 04:46] LABS: Basophils # (auto) 0.1 10 ^3/uL (0-0.2); Basophils % (auto) 0.4 % (0.0-2.0); Eosinophils # (auto) 0.1 10 ^3/uL (0-0.8); Eosinophils % (auto) 0.4 % (0.0-7.0); Hematocrit 29.8 % (41.0-53.0); Lymphocytes # (auto) 0.7 10 ^3/uL (0.4-5.4); Lymphocytes % (auto) 5.6 % (10.0-50.0); Mean Corpuscular Hemoglobin 29.9 pg (28.0-32.0); Mean Corpuscular Hgb Conc. 33.7 g/dL (32.0-36.0); Mean Corpuscular Volume 88.5 fL (80.0-100.0); Monocytes # (auto) 0.4 10 ^3/uL (0-1.3); Monocytes % (auto) 3.1 % (0.0-12.0); Neutrophils # (auto) 11.6 10 ^3/uL (1.6-8.6); Neutrophils % (auto) 90.5 % (37.0-80.0); Red Blood Cells 3.36 10^6/uL (4.5-5.90); Red Cell Distribution Width 13.9 % (11.8-14.3); White Blood Cell 12.8 10^3/uL (4.4-10.8)
[2024-02-09 04:58] LABS: Alanine Aminotransferase 29 U/L (7-40); Alkaline Phosphatase 104 U/L (46-116); Anion Gap 11 (5-15); BUN/Creatinine Ratio 23.3 (10.0-20.0); Calcium 8.7 mg/dL (8.7-10.4); Carbon Dioxide 25 mmol/L (20-30); Chloride 107 mmol/L (98-107); Glucose 104 mg/dL (74-106); Potassium 3.5 mmol/L (3.5-5.1); Sodium 143 mmol/L (136-145)
[2024-02-09 04:59] LABS: Albumin 2.8 g/dL (3.2-4.8); Aspartate Aminotransferase 24 U/L (13-40); Bilirubin, Total 0.4 mg/dL (0.2-1.0)
[2024-02-09 05:00] LABS: Total Protein 6.6 g/dL (5.7-8.2)
[2024-02-09 05:11] LABS: Blood Urea Nitrogen 48 mg/dL (9-23)
[2024-02-09] MEDS: HALOPERIDOL LACTATE 5 MG/ML INJ VIAL IV PRN (08:37)
[2024-02-09] MEDS: LABETALOL HCL 5 MG/ML ML 20ML VIAL IV ONE (10:14)
[2024-02-09] MEDS: hydrALAZINE HCL 20 MG/ML VL IV PRN (12:02)
[2024-02-09 13:03] LABS: Creatinine, Urine 54.01 mg/dL (30.0-125.0); Urine Protein/Creatinine Ratio 3.18
[2024-02-09] MEDS: APIXABAN 5 MG TAB PO SCH (13:40)
[2024-02-10] VITALS (14 sets, daily range): BP systolic 133–148; BP diastolic 81–88; PULSE 69–95; RESP 16–20; TEMP 98.2–98.4; O2SAT 93–99
[2024-02-11] VITALS (17 sets, daily range): BP systolic 116–142; BP diastolic 75–92; PULSE 74–97; RESP 16–20; TEMP 97.8–98.8; O2SAT 93–100
[2024-02-11] MEDS: PANTOPRAZOLE 40 MG TAB PO SCH (05:24)
[2024-02-11 07:16] LABS: Anion Gap 5 (5-15); Carbon Dioxide 27 mmol/L (20-30); Chloride 106 mmol/L (98-107); Potassium 3.2 mmol/L (3.5-5.1); Sodium 138 mmol/L (136-145)
[2024-02-11 07:17] LABS: Calcium 8.4 mg/dL (8.5-10.1)
[2024-02-11 07:19] LABS: Basophils # (auto) 0.1 10 ^3/uL (0-0.2); Basophils % (auto) 0.8 % (0.0-2.0); Eosinophils # (auto) 0.1 10 ^3/uL (0-0.8); Eosinophils % (auto) 0.7 % (0.0-7.0); Hematocrit 27.5 % (41.0-53.0); Hemoglobin 9.6 g/dL (13.5-17.5); Lymphocytes # (auto) 0.8 10 ^3/uL (0.4-5.4); Lymphocytes % (auto) 10.3 % (10.0-50.0); Mean Corpuscular Hemoglobin 30.6 pg (28.0-32.0); Mean Corpuscular Hgb Conc. 34.9 g/dL (32.0-36.0); Mean Corpuscular Volume 87.5 fL (80.0-100.0); Monocytes # (auto) 0.5 10 ^3/uL (0-1.3); Monocytes % (auto) 7.1 % (0.0-12.0); Neutrophils # (auto) 6.3 10 ^3/uL (1.6-8.6); Neutrophils % (auto) 81.1 % (37.0-80.0); Nucleated Red Blood Cells % 0.1 %; Red Blood Cells 3.14 10^6/uL (4.5-5.90); Red Cell Distribution Width 13.6 % (11.8-14.3); White Blood Cell 7.7 10^3/uL (4.4-10.8)
[2024-02-11 07:22] LABS: BUN/Creatinine Ratio 15.8 (10.0-20.0); Blood Urea Nitrogen 26 mg/dL (9-23); Glucose 106 mg/dL (74-106)
[2024-02-11] MEDS ORDERED: LINE1TAB5 PO (11:32)
[2024-02-11] MEDS ORDERED: APIX5TAB PO (11:32)
[2024-02-11] MEDS: POTASSIUM EFFERVESENT TAB 25 MEQ PO ONE (14:29)
[2024-02-11] MEDS: CHOLECALCIFEROL (VITD3) 1,000UNIT=25mCg TAB PO SCH (14:30)
[2024-02-11] MEDS: LINEZOLID 600MG TABLET PO SCH (23:01)
[2024-02-12] VITALS (10 sets, daily range): BP systolic 141–143; BP diastolic 78–92; PULSE 81–95; RESP 16–20; TEMP 98–98.9; O2SAT 96–100
== END 2024-02-12 11:54 | disposition home or self-care (01) | DRG 720 ==
LOC: ER 08:23 → TELE 09:45 → TELE-WESTW 22:59 → DOU IN ICU 01-27 16:15 → ICU WEST 01-28 14:00 → TELE-CENTR 02-09 14:46 → CENTRAL 02-11 10:53
PROVIDERS: ADMIT Internal Medicine; ATTEND Nurse Practitioner Acute Care
PROC: 02HV33Z Insertion of Infusion Device into Superior Vena Cava, Percutaneous Approach (ICD-10-PCS; principal; 2024-01-28)
PROC: 5A1955Z Respiratory Ventilation, Greater than 96 Consecutive Hours (ICD-10-PCS; 2024-01-28)
PROC: B548ZZA Ultrasonography of Superior Vena Cava, Guidance (ICD-10-PCS; 2024-01-28)
PROC: 0BH17EZ Insertion of Endotracheal Airway into Trachea, Via Natural or Artificial Opening (ICD-10-PCS; 2024-01-28)
PROC: B246ZZ4 Ultrasonography of Right and Left Heart, Transesophageal (ICD-10-PCS; 2024-01-30)
PROC: 0B9B8ZZ Drainage of Left Lower Lobe Bronchus, Via Natural or Artificial Opening Endoscopic (ICD-10-PCS; 2024-01-31)
PROC: 0B968ZZ Drainage of Right Lower Lobe Bronchus, Via Natural or Artificial Opening Endoscopic (ICD-10-PCS; 2024-01-31)
PROC: 0B9B8ZZ Drainage of Left Lower Lobe Bronchus, Via Natural or Artificial Opening Endoscopic (ICD-10-PCS; 2024-02-03)
PROC: 0B968ZZ Drainage of Right Lower Lobe Bronchus, Via Natural or Artificial Opening Endoscopic (ICD-10-PCS; 2024-02-03)
PROC: 0BH17EZ Insertion of Endotracheal Airway into Trachea, Via Natural or Artificial Opening (ICD-10-PCS; 2024-02-07)
PROC: 5A1935Z Respiratory Ventilation, Less than 24 Consecutive Hours (ICD-10-PCS; 2024-02-08)
PROC: 0BP1XDZ Removal of Intraluminal Device from Trachea, External Approach (ICD-10-PCS; 2024-02-09)
DX: A41.02 Sepsis due to Methicillin resistant Staphylococcus aureus (principal); J96.21 Acute and chronic respiratory failure with hypoxia; I76 Septic arterial embolism; N17.0 Acute kidney failure with tubular necrosis; R65.21 Severe sepsis with septic shock; J15.212 Pneumonia due to Methicillin resistant Staphylococcus aureus; E44.0 Moderate protein-calorie malnutrition; J15.69 Pneumonia due to other Gram-negative bacteria; M62.82 Rhabdomyolysis; L02.411 Cutaneous abscess of right axilla; Z20.822 Contact with and (suspected) exposure to COVID-19; L02.421 Furuncle of right axilla; L03.113 Cellulitis of right upper limb; E66.9 Obesity, unspecified; E86.9 Volume depletion, unspecified; F14.10 Cocaine abuse, uncomplicated; F15.10 Other stimulant abuse, uncomplicated; F17.210 Nicotine dependence, cigarettes, uncomplicated; L03.114 Cellulitis of left upper limb; N14.11 Contrast-induced nephropathy; T50.8X5A Adverse effect of diagnostic agents, initial encounter; E55.9 Vitamin D deficiency, unspecified; I82.A11 Acute embolism and thrombosis of right axillary vein; E87.0 Hyperosmolality and hypernatremia; N18.30 Chronic kidney disease, stage 3 unspecified; D64.9 Anemia, unspecified; E86.0 Dehydration; J90 Pleural effusion, not elsewhere classified; R04.2 Hemoptysis; E87.4 Mixed disorder of acid-base balance; F10.239 Alcohol dependence with withdrawal, unspecified; E87.6 Hypokalemia; Z90.49 Acquired absence of other specified parts of digestive tract; Z68.36 Body mass index [BMI] 36.0-36.9, adult; Z79.899 Other long term (current) drug therapy; Z78.1 Physical restraint status; Y92.89 Other specified places as the place of occurrence of the external cause; Y90.9 Presence of alcohol in blood, level not specified
CPT/HCPCS: 36415; 36600; 70450; 71045; 71260; 74176; 76604; 80048; 80053; 80202; 80307; 81001; 82150; 82306; 82378; 82550; 82565; 82570; 82805; 82962; 83036; 83540; 83550; 83605; 83690; 83735; 83880; 83970; 84100; 84156; 84300; 84443; 84484; 85007; 85025; 85027; 85379; 85610; 85730; 86606; 86635; 86703; 87040; 87070; 87077; 87081; 87086; 87147; 87186; 87205; 87278; 87426; 87804; 93005; 93306; 93312; 93970; 93971; 94002; 94003; 94640; 94667; 94668; 97110; 97116; 97163; 99291; C9113; G0378; J0171; J0712; J2250; J2405; J2543; J2704; J3490; J7060